=== PATIENT | female | born 1975 | race Caucasian/White ===

== ENCOUNTER 2017-12-24 12:28 | Inpatient (IN) | payer OTHER ==
[~2017-12-24] VITALS: Ht 162.6 cm; Wt 74.9 kg
[2017-12-24] MEDS ORDERED: 0.9 % SODIUM CHLORIDE 10 ML DISP.SYRIN. IV PRN (12:45)
[2017-12-24 13:13] LABS: BASO # 0.1 x10^3/uL (0.0-0.2); BASO % 1 % (0-3); EOS # 0.1 x10^3/uL (0.0-0.7); EOS % 1 % (0-3); HEMATOCRIT 24.9 % (36.0-47.0); HEMOGLOBIN 7.7 g/dL (12.0-15.5); LYMPH # 1.7 x10^3/uL (1.0-4.8); LYMPH % 13 % (24-48); MEAN CORPUSCULAR HEMOGLOBIN 19 pg (25-35); MEAN CORPUSCULAR HGB CONC 31 g/dL (31-37); MEAN CORPUSCULAR VOLUME 61 fL (79-100); MONO # 1.2 x10^3/uL (0.0-1.1); MONO % 10 % (0-9); NEUT % 76 % (31-73); PLATELET COUNT 279 x10^3/uL (140-400); RED BLOOD COUNT 4.11 x10^6/uL (3.50-5.40); RED CELL DISTRIBUTION WIDTH 20.2 % (11.5-14.5); WHITE BLOOD COUNT 13.1 x10^3/uL (4.0-11.0)
[2017-12-24 13:15] LABS: MONONUCLEOSIS PATIENT NEGATIVE (NEGATIVE)
--- NOTE | 2017-12-24 13:17 | RAD ---
CT head without contrast 12/24/2017 Indication: Fever, headache Comparison: None available Technique: Multiple axial noncontrast CT images of the head were obtained from the skull base through the vertex. Findings: The ventricles, sulci and basal cisterns are within normal limits. Bravo-white matter differentiation is normal. There is no acute intracranial hemorrhage. There is no mass, mass effect or midline shift. Posterior fossa is within normal limits. Sellar and suprasellar cistern appear normal. Orbits are normal in appearance. Paranasal sinuses are well aerated. Mastoid air cells are well aerated. Scalp and calvaria are normal. Impression: There is no acute intracranial hemorrhage. PQRS Compliance Statement: One or more of the following individualized dose reduction techniques were utilized for this examination: 1. Automated exposure control 2. Adjustment of the mA and/or kV according to patient size 3. Use of iterative reconstruction technique
[2017-12-24 13:27] LABS: ALBUMIN 3.3 g/dL (3.4-5.0); ALBUMIN/GLOBULIN RATIO 0.9 (1.0-1.7); CALCIUM 8.7 mg/dL (8.5-10.1); CREATININE 0.8 mg/dL (0.6-1.0); GFR 79.4; TOTAL BILIRUBIN 0.6 mg/dL (0.2-1.0); TOTAL PROTEIN 7.1 g/dL (6.4-8.2)
--- NOTE | 2017-12-24 13:28 | RAD ---
2 view CXR: Clinical indications: Fever and chills. Comparison: None available. Findings: Old granulomatous disease is seen. No acute lung infiltrate or pleural effusion or pulmonary edema or lung mass or pneumothorax is seen. The heart size is at the upper limits of normal. The pulmonary vasculature, mediastinum and both dmitriy are unremarkable. The osseous structures appear intact. Impression: No acute radiographic abnormality is seen.
[2017-12-24 13:29] LABS: POTASSIUM 2.9 mmol/L (3.5-5.1)
[2017-12-24] MEDS ORDERED: KETOROLAC 30 MG/ML VIAL. IV ONE (13:30)
[2017-12-24] MEDS ORDERED: ONDANSETRON PF 4 MG/2 ML VIAL. IV ONE (13:30)
[2017-12-24] MEDS ORDERED: IV NORMAL SALINE 1,000ML 1,000 ML IV SCH (13:30)
[2017-12-24 13:40] LABS: INFLUENZA A PATIENT NEGATIVE (NEGATIVE); INFLUENZA B PATIENT NEGATIVE (NEGATIVE)
[2017-12-24 13:49] LABS: BILIRUBIN,URINE NEG (NEG); CLARITY,URINE HAZY; COLOR,URINE AMBER; GLUCOSE,URINE NEG (NEG)
[2017-12-24 13:50] LABS: BACTERIA,URINE FEW /HPF (0-FEW); NITRITE,URINE NEG (NEG); RBC,URINE RARE /HPF (0-2); SQUAMOUS EPITHELIAL CELL,UR MANY /LPF; UROBILINOGEN,URINE 2 mg/dL (0.2 mg/dL)
[2017-12-24 14:00] LABS: FECAL OB PT NEGATIVE (NEG)
[2017-12-24] MEDS ORDERED: POTASSIUM CHLORIDE 20 MEQ TABLET.ER. PO ONE (14:00)
[2017-12-24 14:15] LABS: HYPOCHROMIA MARKED; PLT ESTIMATE ADEQUATE (ADEQUATE)
[2017-12-24] MEDS ORDERED: ONDANSETRON PF 4 MG/2 ML VIAL. IV PRN (14:15)
[2017-12-24] MEDS ORDERED: cefTRIAXone IV Push 1 GM VIAL. IVP ONE (14:15)
--- NOTE | 2017-12-24 14:15 | PHYS DOC ---
Past History Past Medical History: Migraines, Other Past Surgical History: Cholecystectomy, Hysterectomy, Tubal ligation, Other Alcohol Use: None Drug Use: None Adult General Chief Complaint Chief Complaint: Neck Pain HPI HPI 42 year old female patient with history of migraine headache and chronic anemia complaining of generalized body ache and headache for the last 4 days. Patient was seen at urgent care 2 days ago and treated for UTI and was seen at [facility] yesterday and had extensive labs and treated with antibiotics without having UTI or source of infection. Patient was at thermometer this morning and had temperature of 103 at home and took Tylenol and seen by her primary care physician and had blood test. Patient was sent home and her primary care physician called her and recommended him to ER because she had white count of 14,000 and he was concern for possible meningitis. Patient complaining of hurting all over including her neck and states her headache is different from her usual migraine headache because usually she has headache in right side of her head but for last 4 days her pain is in top of her head and rated her pain 6/10. Patient denies focal neuro deficit, vomiting, diarrhea, nasal congestion, sore throat and cough, sick contact, urinary symptom. Review of Systems Review of Systems Constitutional: Reports fever and chills] Eyes: Denies change in visual acuity, redness, or eye pain [] HENT: Denies nasal congestion or sore throat [] Respiratory: Denies cough or shortness of breath [] Cardiovascular: No additional information not addressed in HPI [] GI: Denies abdominal pain, vomiting, bloody stools or diarrhea , reports nausea [] : Denies dysuria or hematuria [] Musculoskeletal: Denies back pain or joint pain [] Integument: Denies rash or skin lesions [] Neurologic: Reports headache, denies focal weakness or sensory changes [] Endocrine: Denies polyuria or polydipsia [] All other systems were reviewed and found to be within normal limits, except as documented in this note. Current Medications Current Medications Current Medications Medications (Trade) Dose Ordered Sig/Suma Start Time Stop Time Status Last Admin Dose Admin Ceftriaxone Sodium 1 gm/ Sodium Chloride 50 ml @ 100 mls/hr 1X ONCE 12/24/17 14:15 12/24/17 14:15 DC Ceftriaxone Sodium (Rocephin) 1 gm 1X ONCE 12/24/17 14:15 12/24/17 14:16 Ketorolac Tromethamine (Toradol) 30 mg 1X ONCE 12/24/17 13:30 12/24/17 13:31 DC 12/24/17 13:48 30 MG Ondansetron HCl (Zofran) 4 mg 1X ONCE 12/24/17 13:30 12/24/17 13:31 DC 12/24/17 13:46 4 MG Potassium Chloride (Klor-Con) 40 meq 1X ONCE 12/24/17 14:00 12/24/17 14:01 DC 12/24/17 13:50 40 MEQ Sodium Chloride (Normal Saline Flush) 10 ml QSHIFT PRN 12/24/17 12:45 Allergies Allergies Allergies Coded Allergies Type Severity Reaction Last Updated Verified No Known Drug Allergies 12/24/17 No Physical Exam Physical Exam Constitutional: Well developed, well nourished, mild distress, non-toxic appearance, afebrile. [] HENT: Normocephalic, atraumatic, bilateral external ears normal, oropharynx moist, no oral exudates, nose normal. [] Eyes: PERRLA, EOMI, conjunctiva normal, no discharge. [] Neck: Normal range of motion, no tenderness, supple, no stridor, no rigidity or meningeal sign. [] Cardiovascular:Heart rate regular rhythm, no murmur [] Lungs & Thorax: Bilateral breath sounds clear to auscultation [] Abdomen: Bowel sounds normal, soft, no tenderness, no masses, no pulsatile masses, rectal exam in present of gyro compass tester did not show melena. [] Skin: Warm, dry, no erythema, no rash, pale. [] Back: No tenderness, no CVA tenderness. [] Extremities: No tenderness, no cyanosis, no clubbing, ROM intact, no edema. [] Neurologic: Alert and oriented X 3, normal motor function, normal sensory function, no focal deficits noted. [] Psychologic: Affect normal, judgement normal, mood normal. [] Current Patient Data Vital Signs Vital Signs Date Time Temp Pulse Resp B/P (MAP) Pulse Ox O2 Delivery O2 Flow Rate FiO2 12/24/17 12:35 99.3 90 16 99 Room Air Lab Results Laboratory Tests Test 12/24/17 12:54 12/24/17 13:00 12/24/17 13:02 12/24/17 13:14 White Blood Count 13.1 x10^3/uL (4.0-11.0) H Red Blood Count 4.11 x10^6/uL (3.50-5.40) Hemoglobin 7.7 g/dL (12.0-15.5) L Hematocrit 24.9 % (36.0-47.0) L Mean Corpuscular Volume 61 fL (79-100) L Mean Corpuscular Hemoglobin 19 pg (25-35) L Mean Corpuscular Hemoglobin Concent 31 g/dL (31-37) Red Cell Distribution Width 20.2 % (11.5-14.5) H Platelet Count 279 x10^3/uL (140-400) Neutrophils (%) (Auto) 76 % (31-73) H Lymphocytes (%) (Auto) 13 % (24-48) L Monocytes (%) (Auto) 10 % (0-9) H Eosinophils (%) (Auto) 1 % (0-3) Basophils (%) (Auto) 1 % (0-3) Neutrophils # (Auto) 10.0 x10^3uL (1.8-7.7) H Lymphocytes # (Auto) 1.7 x10^3/uL (1.0-4.8) Monocytes # (Auto) 1.2 x10^3/uL (0.0-1.1) H Eosinophils # (Auto) 0.1 x10^3/uL (0.0-0.7) Basophils # (Auto) 0.1 x10^3/uL (0.0-0.2) Prothrombin Time 12.9 SEC (9.4-11.4) H Prothrombin Time INR 1.3 (0.9-1.1) H Sodium Level 136 mmol/L (136-145) Potassium Level 2.9 mmol/L (3.5-5.1) *L Chloride Level 101 mmol/L (98-107) Carbon Dioxide Level 24 mmol/L (21-32) Anion Gap 11 (6-14) Blood Urea Nitrogen 10 mg/dL (7-20) Creatinine 0.8 mg/dL (0.6-1.0) Estimated GFR (Cockcroft-Gault) 79.4 BUN/Creatinine Ratio 13 (6-20) Glucose Level 104 mg/dL (70-99) H Lactic Acid Level 2.1 mmol/L (0.4-2.0) H Calcium Level 8.7 mg/dL (8.5-10.1) Total Bilirubin 0.6 mg/dL (0.2-1.0) Aspartate Amino Transferase (AST) 21 U/L (15-37) Alanine Aminotransferase (ALT) 19 U/L (14-59) Alkaline Phosphatase 76 U/L (46-116) Troponin I Quantitative < 0.017 ng/mL (0-0.055) Total Protein 7.1 g/dL (6.4-8.2) Albumin 3.3 g/dL (3.4-5.0) L Albumin/Globulin Ratio 0.9 (1.0-1.7) L Heterophil Agglutinins Negative (NEGATIVE) Influenza Type A (Rapid) Negative (NEGATIVE) Influenza Type B (Rapid) Negative (NEGATIVE) Group A Streptococcus Rapid Negative (NEGATIVE) Urine Collection Type Unknown Urine Color Alyssa Urine Clarity Hazy Urine pH 5.5 Urine Specific [place] 1.020 Urine Protein 30 mg/dl (NEG-TRACE) Urine Glucose (UA) Neg mg/dL (NEG) Urine Ketones (Stick) Trace mg/dL (NEG) Urine Blood Trace (NEG) Urine Nitrite Neg (NEG) Urine Bilirubin Neg (NEG) Urine Urobilinogen Dipstick 2 mg/dL (0.2 mg/dL) Urine Leukocyte Esterase Neg (NEG) Urine RBC Rare /HPF (0-2) Urine WBC 1-4 /HPF (0-4) Urine Squamous Epithelial Cells Many /LPF Urine Transitional Epithelial Cells Occ /LPF Urine Bacteria Few /HPF (0-FEW) Urine Mucus Slight /LPF Test 12/24/17 13:40 Stool Occult Blood Negative (NEG) EKG EKG [] Radiology/Procedures Radiology/Procedures [] [address] [address] IMAGING REPORT Signed PATIENT: PAPO RIZO ACCOUNT: [id number] : 1975 LOCATION: ER AGE: 42 SEX: F EXAM STATUS: REG ER ORD. PHYSICIAN: BRANDON RAPP MD REASON: fever and headache PROCEDURE: CHEST PA & LATERAL 2 view CXR: Clinical indications: Fever and chills. Comparison: None available. Findings: Old granulomatous disease is seen. No acute lung infiltrate or pleural effusion or pulmonary edema or lung mass or pneumothorax is seen. The heart size is at the upper limits of normal. The pulmonary vasculature, mediastinum and both dmitriy are unremarkable. The osseous structures appear intact. Impression: No acute radiographic abnormality is seen. DICTATED AND SIGNED BY: YUVAL MATHEW MD DATE: 12/24/171323 CC: BRANDON RAPP MD; NON,STAFF ~ [place] [address] IMAGING REPORT Signed PATIENT: PAPO RIZO ACCOUNT: [id number] : 1975 LOCATION: ER AGE: 42 SEX: F EXAM STATUS: REG ER ORD. PHYSICIAN: BRANDON RAPP MD REASON: fever and headache PROCEDURE: CHEST PA & LATERAL 2 view CXR: Clinical indications: Fever and chills. Comparison: None available. Findings: Old granulomatous disease is seen. No acute lung infiltrate or pleural effusion or pulmonary edema or lung mass or pneumothorax is seen. The heart size is at the upper limits of normal. The pulmonary vasculature, mediastinum and both dmitriy are unremarkable. The osseous structures appear intact. Impression: No acute radiographic abnormality is seen. DICTATED AND SIGNED BY: YUVAL MATHEW MD DATE: 12/24/171323 CC: BRANDON RAPP MD; NON,STAFF ~ Course & Med Decision Making Course & Med Decision Making Pertinent Labs and Imaging studies reviewed. (See chart for details) Evaluation of patient in ER showed 42-year-old female patient with history of migraine headache and complaining of nausea and headache and fever for 4 days. This is her fourth visit to different places regarding her current problem and her primary care physician was concerned for possible meningitis. Patient did not have meningeal sign. Patient had white count of 13,000 and lactic of 2.1 and potassium of 2.9. I offered patient a lumbar puncture but she refused to have lumbar puncture and wants to wait to see how she is feeling. IV fluid and antibiotic and oral potassium given. Patient felt better with treatment in ER. Dr. Perez was informed about patient condition and agreed admission at 1404. Dragon Disclaimer Dragon Disclaimer This electronic medical record was generated, in whole or in part, using a voice recognition dictation system. Departure Departure: Impression: Primary Impression: Headache Additional Impressions: Fever Anemia Hypokalemia Elevated lactic acid level Leukocytosis Noncompliance with diagnostic test Disposition: 09 ADMITTED INPATIENT (At 1405) Admitting Physician: Elo Perez Condition: IMPROVED Referrals: NON,STAFF (PCP) Problem Qualifiers BRANDON RAPP MD Dec 24, 2017 14:15
[2017-12-24 14:16] LABS: ANISOCYTOSIS MOD; MICROCYTOSIS MOD; OVALOCYTES PRESENT; SCHISTOCYTES OCC
[2017-12-24] MEDS ORDERED: IV NORMAL SALINE 1,000ML 1,000 ML IV ONE (14:45)
[2017-12-24] MEDS ORDERED: MORPHINE SULFATE 4 MG/ML DISP.SYRIN. IV ONE (14:45)
[2017-12-24 16:29] VITALS: BP 124/85
--- NOTE | 2017-12-24 16:35 | NUR ---
The patient, PAPO RIZO, 42 y/o, F admitted by RADHA ERIC DO, was given written information regarding hospital policies, unit procedures and contact persons. Valuables were checked and left at bedside.
[2017-12-24] MEDS ORDERED: FERR325T14 PO (17:52)
[2017-12-24] MEDS ORDERED: MULT1TAB52 PO (17:52)
[2017-12-24] MEDS ORDERED: ASPI1TAB31 PO (17:52)
[2017-12-24] MEDS ORDERED: cefTRIAXone IV Push 1 GM VIAL. IVP SCH (18:00)
[2017-12-24 18:41] VITALS: BP 124/85
[2017-12-24] MEDS: KETOROLAC 30 MG/ML VIAL. IV PRN (19:22)
[2017-12-24] MEDS: IV NORMAL SALINE 1,000ML 1,000 ML IV SCH ×2 (19:36→20:52)
[2017-12-24 20:07] VITALS: BP 130/92
[2017-12-24] MEDS: LACTOBACILLUS RHAMNOSUS GG 1 CAPSULE. PO SCH (20:52)
[2017-12-24 23:17] VITALS: BP 122/71
--- NOTE | 2017-12-24 23:39 | CONS ---
DATE OF CONSULTATION: REFERRING PHYSICIAN: Dr. Perez REASON FOR CONSULTATION: Severe headaches. HISTORY OF PRESENT ILLNESS: This is a 42 years old female, who was admitted through Emergency Room today after she presented with 4 days' history of severe headaches. The patient was seen at urgent care 2 days ago and she was found to have urinary tract infections, therefore, she was placed on antibiotics. The patient was seen also at [facility] yesterday and she was treated with antibiotics that include Cipro and given Toradol for headaches along with Tylenol. This morning, the patient woke up and her temperature was 103. Therefore, she was seen by her primary care in [place]. She had a blood test and she was sent home to continue her medications. The white blood cells were 14,000. Therefore, she was called by her primary physician to go to Emergency Room for further evaluation. The patient also complains of neck pain and generalized aches all over her body. She has had history of migraine headaches, but she described this headache is differently. The headache is localized in the top of her head. She denies nausea, vomiting, photophobia, or phonophobia. Currently, his headache is rated at a 7-10. She denies visual disturbances, chest pain, shortness of breath or palpitation, dysarthria, dysphagia, weakness or paresthesia. The patient denies any GI symptoms or other respiratory symptoms. She denies any urinary symptoms as well. PAST MEDICAL HISTORY: Past medical history is significant for migraine headaches. PAST SURGICAL HISTORY: Past surgical history is significant for cholecystectomy, hysterectomy, tubal ligations. SOCIAL HISTORY: The patient is , but she is going into divorce. She has 3 children. She denies smoking, alcohol drinking, or illicit drug use. FAMILY HISTORY: Father had liver transplant and hepatitis C along with hypertension and mother had thyroid disease. CURRENT MEDICATIONS: Rocephin, Zofran, IV fluid, Toradol p.r.n., and potassium supplement. ALLERGIES: No known drug allergies. REVIEW OF SYSTEMS: A 10-point review of system was performed as mentioned above history of present illness, otherwise unremarkable. PHYSICAL EXAMINATION: GENERAL: Well-developed, well-nourished white female, not in acute distress. VITAL SIGNS: She weighs 163 pounds, blood pressure 124/85, respiratory rate is 18, pulse is 84, temperature 98.7, oxygen saturation 99% on room air. HEENT: Normocephalic, atraumatic, otherwise unremarkable. NECK: Supple. Negative for carotid bruit, lymphadenopathy, or thyromegaly. LUNGS: Clear to A and P. CARDIOVASCULAR: Regular rhythm. Normal S1, S2. There is no S3, S4, or murmur. ABDOMEN: Soft. Bowel sounds positive. EXTREMITIES: Negative for cyanosis, clubbing, or pitting edema. NEUROLOGIC: Mental status: The patient is alert and oriented x 3. Speech is fluent. There is no language dysfunction. Memory, judgment and abstracting thinkings are normal. The patient denies hallucination or delusion. Cranial nerves: Visual irizarry are full. The pupils are reactive to light and accommodation. The extraocular movements are intact. There is no nystagmus. There is no facial motor or sensory deficit. Hearing is intact bilaterally. The palate is elevated symmetrically. Sternocleidomastoid muscles are powerful bilaterally. The patient shrugs her shoulders symmetrically protrudes her tongue in the midline without fasciculation or atrophy. Motor examination: No focal muscle bulk was seen. The tone is normal. The strength is 5/5 throughout. Sensory examination revealed normal pinprick, light touch, vibratory and position senses. Deep tendon reflexes were symmetric and active without pathologic responses. Gait and coordination are normal. DIAGNOSTIC DATA: Head CT scan: A nonenhanced head CT scan revealed no evidence of acute intracranial process. A chest x-ray revealed no acute cardiopulmonary process. LABORATORY DATA: CBC revealed white blood cells of 11.1 thousand, hemoglobin 7.7, hematocrit 24.9, platelet count 279,000. Chemistry: Sodium 136, potassium 2.9, chloride 101, CO2 24, BUN 10, creatinine 0.8, glucose 104. Lactic acid is 2.1. Liver enzymes are normal. Troponin level is less than 0.017. Urinalysis is negative for urinary tract infections with a few bacteria. IMPRESSION: 1. Headaches, neck pain, fever, and leukocytosis with elevated lactic acid, rule out systemic infections, possibly recent urinary tract infections. 2. Secondary headache due to systemic infections. 3. History of migraine headaches, but not at this time. 4. Anemia with hemoglobin of 7.7. 5. Hypokalemia. RECOMMENDATION: 1. Continue with current management for systemic infections. 2. Treat the underlying anemia. 3. Toradol and morphine for headaches on p.r.n. 4. If patient shows signs of meningitis, she should have the spinal tap. M Jm MORALES MD DR: WALTER/rodney JOB#: [id number] / [id number]
[2017-12-25] VITALS (7 sets, daily range): BP systolic 120–134; BP diastolic 73–88
[2017-12-25] MEDS: KETOROLAC 30 MG/ML VIAL. IV PRN (01:21)
[2017-12-25] MEDS: IV NORMAL SALINE 1,000ML 1,000 ML IV SCH ×2 (01:21→10:30)
[2017-12-25 06:39] LABS: BASO # 0.1 x10^3/uL (0.0-0.2); BASO % 1 % (0-3); EOS # 0.1 x10^3/uL (0.0-0.7); EOS % 1 % (0-3); HEMATOCRIT 22.6 % (36.0-47.0); LYMPH # 2.5 x10^3/uL (1.0-4.8); LYMPH % 25 % (24-48); MEAN CORPUSCULAR HEMOGLOBIN 19 pg (25-35); MEAN CORPUSCULAR HGB CONC 31 g/dL (31-37); MEAN CORPUSCULAR VOLUME 60 fL (79-100); MONO % 10 % (0-9); NEUT # 6.1 x10^3uL (1.8-7.7); NEUT % 63 % (31-73); PLATELET COUNT 254 x10^3/uL (140-400); RED BLOOD COUNT 3.75 x10^6/uL (3.50-5.40); RED CELL DISTRIBUTION WIDTH 20.3 % (11.5-14.5); WHITE BLOOD COUNT 9.7 x10^3/uL (4.0-11.0)
[2017-12-25 06:50] LABS: ALBUMIN 2.8 g/dL (3.4-5.0); ALBUMIN/GLOBULIN RATIO 0.8 (1.0-1.7); CALCIUM 8.4 mg/dL (8.5-10.1); CREATININE 0.6 mg/dL (0.6-1.0); GFR 110.7; MAGNESIUM 2.1 mg/dL (1.8-2.4); POTASSIUM 3.5 mmol/L (3.5-5.1); TOTAL BILIRUBIN 0.4 mg/dL (0.2-1.0); TOTAL PROTEIN 6.4 g/dL (6.4-8.2)
[2017-12-25] MEDS: LACTOBACILLUS RHAMNOSUS GG 1 CAPSULE. PO SCH (09:54)
--- NOTE | 2017-12-25 09:59 | PN ---
DATE: SUBJECTIVE: The patient stated her headache has improved and it is rated now at 4/10. She required only one injection of Toradol 30 mg last night. She denies nausea, dizziness, vomiting, visual disturbances, chest pain, shortness of breath or palpitation, dysarthria, dysphagia, weakness or paresthesia. OBJECTIVE: GENERAL: Well-developed, well-nourished white female, not in acute distress. VITAL SIGNS: Blood pressure 120/75, respiratory rate 18, pulse is 67 and regular, temperature 98.3, oxygen saturation 99% on room air. HEENT: Normocephalic, atraumatic, otherwise, unremarkable. NECK: Supple. Negative for carotid bruit, lymphadenopathy, thyromegaly or JVD. LUNGS: Clear to A and P. CARDIOVASCULAR: Regular rate rhythm. Normal S1, S2. There is no S3, S4 or murmur. ABDOMEN: Soft. Bowel sounds positive. EXTREMITIES: Negative for cyanosis, clubbing, or pitting edema. NEUROLOGIC: Normal mental status and intact cranial nerves. There is no focal motor or sensory deficit. Deep tendon reflexes were symmetric and active without pathology responses. Gait and coordination are normal. LABORATORY DATA: CBC revealed white blood cells of 9.7 thousand, hemoglobin 7, hematocrit 22.6, platelet count 254,000. Chemistry revealed sodium 140, potassium 3.5, chloride 107, CO2 26, BUN 6, creatinine 0.6, glucose 93, calcium is 8.4. Lactic acid is 1.7. IMPRESSION: 1. Severe headaches, probably due to systemic infection. 2. ____ infection -- improved. 3. History of migraine headaches. 4. Severe anemia with history of iron deficiency anemia. However, the patient has not been compliant with her medication -- iron. She is supposed to take 2 tablets daily. RECOMMENDATION: 1. Continue with current management initiated by Dr. Perez. 2. Continue with analgesic as needed. 3. The patient should continue with iron and monitor hemoglobin on an outpatient basis. M Jm MORALES MD DR: WALTER/rodney JOB#: [id number] / [id number]
--- NOTE | 2017-12-25 10:36 | NUR ---
Transfusion: Blood transfusion started at 1016 am. Tubing primed with NS, then primed with blood. Transfusion started at 25mL/hr and patient monitored closely x15 min. No reaction noted and vital signs stable after 15 min. Transfusion rate increased to 125mL/hr. Continue to monitor and assess vital signs q1 hr.
[2017-12-25 13:43] LABS: HEMATOCRIT 27.3 % (36.0-47.0); HEMOGLOBIN 8.5 g/dL (12.0-15.5)
[2017-12-25] MEDS ORDERED: cefTRIAXone IV Push 1 GM VIAL. IVP SCH (14:00)
[2017-12-25] MEDS ORDERED: AMOX1TAB61 PO (14:21)
[2017-12-25] MEDS ORDERED: FERR325T14 PO (14:21)
[2017-12-25] MEDS ORDERED: LACT1CAP19 PO (14:21)
--- NOTE | 2017-12-25 15:20 | NUR ---
Transfusion: Transfusion completed at 1315 and vital signs rechecked after 1 hr. Slight increase in temperature noted. Lab and Dr. Perez consulted. Patient monitored and vitals reassessed after an additional hour and noted to be stable.
--- NOTE | 2017-12-25 15:26 | SSS ---
ADMIT DATE: 12/25/2017 RV SERVICE TECHNICIAN: Dr. Poole. PRIMARY CARE PHYSICIAN: Dr. Chris Gasca DISCHARGE DIAGNOSES: 1. Severe microcytic anemia. 2. Status post blood transfusion of 1 unit of packed cells. 3. Febrile illness, unknown etiology. 4. Severe headache, relieved with blood transfusion. 5. History of migraines. 6. Severe hypokalemia, resolved. 7. Moderate protein-calorie malnutrition. 8. Lactic acidosis. 9. Leukocytosis without any evidence of sepsis. HOSPITAL COURSE: This is a 42-year-old female who has had problems with generalized body aches and fever over the last 4 days. She had been seen in urgent care and treated for UTI. She also had an extensive workup at [facility] on 12/23/2017 and was treated with antibiotics and sent home. The patient had taken her temperature on 12/24/2017 and found to be 103 and was seen by her primary care physician and found to have an elevated white count. As she was having headache, there was some concern about meningitis. She was worked up in the Emergency Room and declined to have spinal tap, did not have particular focal neuro deficits or nuchal rigidity and was admitted. While admitted, she was found to have severe anemia and her hemoglobin came down to 7 on 12/25/2017. She received 1 unit of packed cells. She also received IV fluids and her potassium was replaced. She received Toradol for her headache, which greatly relieved her headache. Her CAT scan of the head was negative. PERTINENT LABORATORY DATA: White cell count was 13.1. Her potassium was 2.9. Lactic acid was 2.1 and then came back down. Influenza group A strep and mono was negative. Her hydrophilic agglutinins were negative. Urinalysis also was a contaminated specimen. She was seen by Dr. Poole who confirmed doubtful meningitis. She received 2 doses of ceftriaxone while in the hospital. PHYSICAL EXAMINATION: VITAL SIGNS: Blood pressure 122/71, pulse 75, respirations 20, temperature 98.7, T-max was 99.3, O2 sat 99% on room air. HEENT: External ear canals are normal. Her eyes were clear. Nose was patent. Throat was clear. No injection of the posterior pharynx. NECK: Supple, without adenopathy. There was no nuchal rigidity or tenderness at the time of exam. LUNGS: Clear to auscultation. CARDIOVASCULAR: Regular rhythm and rate. ABDOMEN: Soft, nontender. EXTREMITIES: Without edema. GENERAL: Color was pale. Lab work as described, hemoglobin was 7.0, MCV of 61. ASSESSMENT: As above. PLAN: Increase iron to twice a day, take with vitamin C 500 mg twice a day. It seems reasonable to continue with Augmentin 875 b.i.d. If she gets worse or temperature gets worse, she is to return and follow up with her own doctor for iron deficiency workup. RADHA ERIC DO DR: CARLIE/rodney JOB#: [id number] / [id number]
--- NOTE | 2017-12-25 15:55 | NUR ---
Discharge Note: PAPO RIZO [address] Discharge instructions and discharge home medications reviewed with PATIENT and a copy given. All questions have been answered and understanding verbalized. The following instructions and handouts were given: MEDICATIONS, FOLLOW UP INSTRUCTIONS, AND EDUCATIONAL HANDOUTS GIVEN. PATIENT INSTRUCTED TO DIRECTOR COMMUNICATIONS HER PRESCRIPTIONS FROM HER PHARMACY THEY WERE TRANSMITTED ELECTRONICALLY. Discontinued lines and drains: PERIPHERAL IV DISCONTINUED WITH NO COMPLICATIONS. Patient discharged to HOME with FAMILY via PRIVATE VEHICLE.
== END 2017-12-25 16:20 | disposition home or self-care (01) | DRG 98 ==
LOC: ER 12:28 → 1 SOUTH 14:09
PROVIDERS: ADMIT Family Medicine; ATTEND Family Medicine
PROC: 30233N1 Transfusion of Nonautologous Red Blood Cells into Peripheral Vein, Percutaneous Approach (ICD-10-PCS; principal; 2017-12-25)
DX: G03.9 Meningitis, unspecified (principal); E44.0 Moderate protein-calorie malnutrition; E87.2 Acidosis; D50.9 Iron deficiency anemia, unspecified; M54.2 Cervicalgia; D72.829 Elevated white blood cell count, unspecified; Z53.20 Procedure and treatment not carried out because of patient's decision for unspecified reasons; G43.809 Other migraine, not intractable, without status migrainosus; E87.6 Hypokalemia; Z68.28 Body mass index [BMI] 28.0-28.9, adult; Z82.49 Family history of ischemic heart disease and other diseases of the circulatory system; Z90.710 Acquired absence of both cervix and uterus; Z91.14 Patient's other noncompliance with medication regimen; Z91.19 Patient's noncompliance with other medical treatment and regimen; Z87.440 Personal history of urinary (tract) infections; Z84.89 Family history of other specified conditions; Z83.49 Family history of other endocrine, nutritional and metabolic diseases; Z90.49 Acquired absence of other specified parts of digestive tract; Z98.51 Tubal ligation status
CPT/HCPCS: 36415; 70450; 71046; 80053; 81001; 82274; 83605; 83735; 84484; 85014; 85018; 85025; 85610; 86308; 86850; 86900; 86901; 86920; 87040; 87070; 87804; 87880; 96361; 96374; 96375; J0696; J1885; J2405; P9016; 99285-25; J7030